=== PATIENT | male | born 1980 | race Two or more races ===

== ENCOUNTER → 2017-08-19 | Outpatient (CLI) | payer BC ==
[2017-08-21 23:13] LABS: HSV 1&2 IGM <0.91 Ratio (0.00-0.90)
== END | disposition home or self-care (01) ==
LOC: LAB 12:40
PROVIDERS: ATTEND Family Medicine
DX: Z11.3 Encounter for screening for infections with a predominantly sexual mode of transmission (principal); A54.09 Other gonococcal infection of lower genitourinary tract
CPT/HCPCS: 36415; 86593; 86703; 87340; 87529